=== PATIENT | male | born 1980 | race Caucasian/White ===

== ENCOUNTER → 2023-07-30 10:11 | Outpatient (REF) | payer BC, SELFPAY | LOC: RCS 10:11 | PROVIDERS: ATTENDING PHYSICIAN Nurse Practitioner Family | DX: R07.89 Other chest pain (principal); R00.2 Palpitations | CPT/HCPCS: 93017 ==

== ENCOUNTER → 2023-08-20 14:49 | Outpatient (REF) | payer BC, SELFPAY | LOC: RCS 14:49 | PROVIDERS: ATTENDING PHYSICIAN Nurse Practitioner Family | DX: R07.89 Other chest pain (principal); R00.2 Palpitations | CPT/HCPCS: 93306 ==